=== PATIENT | female | born 1985 | race Caucasian/White ===

== ENCOUNTER 2017-10-02 19:10 | Emergency (ER) | payer OTHER ==
[~2017-10-02] VITALS: Ht 152.4 cm; Wt 45.4 kg
[~2017-10-02 19:10] MED LIST: AMOXICILLIN250 MG PO; DAY TIME COLD-237 ML; DAY TIME COLD-237 ML PO; IBUPROFEN 600600 M1 PO; NIGHT COLD-FLU1 EACH PO; NOHOMEMEDICATIONS; NORCO 5-325 TA1 EACH PO; PENICILLIN VK500 M1 PO; PROMETHAZINE-C120 ML PO; TUSSIONEX PENN473 ML PO; ZPAK PO
[2017-10-02] MEDS ORDERED: NAPROSYN500 MG PO (20:26)
[2017-10-02 20:40] VITALS: BP 112/70
== END 2017-10-02 20:36 | disposition home or self-care (01) ==
LOC: ER 19:10
DX: S63.591A Other specified sprain of right wrist, initial encounter (principal); F17.210 Nicotine dependence, cigarettes, uncomplicated; Z87.442 Personal history of urinary calculi; V23.4XXA Motorcycle driver injured in collision with car, pick-up truck or van in traffic accident, initial encounter; Y93.89 Activity, other specified; Y92.89 Other specified places as the place of occurrence of the external cause; Y99.8 Other external cause status